=== PATIENT | female | born 1980 | race Two or more races ===

== ENCOUNTER 2017-11-28 11:59 | Emergency (ER) | payer OTHER ==
[~2017-11-28] VITALS: Ht 170.2 cm; Wt 63.5 kg
[2017-11-28 12:04] VITALS: BP 133/82
--- NOTE | 2017-11-28 12:40 | NUR ---
SENT TO LAB
[2017-11-28] MEDS ORDERED: IBUPROFEN 600 MG TABLET PO ONE ×2 (13:00→13:19)
== END 2017-11-28 13:33 | disposition home or self-care (01) ==
LOC: ER 12:05
DX: R51 Headache (principal)
CPT/HCPCS: 87804 ×2; 99284; A4606; Z7610; 87400